=== PATIENT | female | born 1950 | race American Indian/Alaskan Native ===

== ENCOUNTER 2017-03-26 14:52 | Outpatient (CLI) | payer MEDICARE ==
--- NOTE | 2017-03-28 09:59 | Mammography Report ---
Bilateral mammogram with tomosynthesis: Compared to 02/08/16. CAD study utilized. Findings: Heterogeneous breast parenchyma bilaterally. Circumscribed density upper inner right breast without significant interval change in size and configuration. Biopsy site with thickening of the adjacent skin. Benign calcifications. On tomosynthesis there is circumscribed mass with spiculated margin, corresponding to the density seen on mammogram, at right breast. On the left breast on tomosynthesis there is circumscribed density noted at 12:00 not seen on the mammogram. Impression: Circumscribed density right and left breast as detailed above. Recommend sonographic examination. BI-RADS CATEGORY: 0 = Needs additional imaging evaluation ACR BI-RADS MAMMOGRAPHIC CODES: 0 = Needs additional imaging evaluation; 1 = Negative; 2 = Benign; 3 = Probably benign; 4 = Suspicious; 5 = Malignant; 6 = Known biopsy-proven malignancy COMMENT: 1. Dense breast tissue, i.e., adenosis, fibrocystic changes, etc., may obscure an underlying neoplasm. 2. Approximately 10% of cancers are not detected with mammography. 3. A negative mammography report should not delay biopsy if a clinically suspicious mass is present.
== END 2017-03-26 14:53 | disposition home or self-care (01) ==
LOC: MAMMO 14:52
PROVIDERS: ATTEND Internal Medicine Hematology & Oncology
DX: Z12.31 Encounter for screening mammogram for malignant neoplasm of breast (principal)
CPT/HCPCS: 77063; G0202; 77067